=== PATIENT | male | born 1980 | race Two or more races ===

== ENCOUNTER 2019-10-10 03:22 | Emergency (ER) | payer OTHER ==
[~2019-10-10] VITALS: Ht 182.9 cm; Wt 63.5 kg
[2019-10-10 03:30] VITALS: BP 135/80
[2019-10-10 04:32] VITALS: BP 135/80
--- NOTE | 2019-10-10 04:34 | NUR ---
Patient discharged with v/s stable. Written and verbal after care instructions given and explained. Patient verbalized understanding. Ambulatory with steady gait. All questions addressed prior to discharge. Advised to follow up with PMD.
== END 2019-10-10 04:34 | disposition home or self-care (01) ==
LOC: MED 03:22
DX: F15.10 Other stimulant abuse, uncomplicated (principal)
CPT/HCPCS: 99283